=== PATIENT | male | born 1950 | race Caucasian/White ===

== ENCOUNTER → 2018-05-19 | Outpatient (CLI) | payer MEDICARE ==
--- NOTE | 2018-05-19 09:04 | Diagnostic Imaging Report ---
Indication: Persistent cough PA and lateral chest Heart size and pulmonary vascular normal. Lungs are clear. There are no effusions or pneumothoraces. Impression: Negative chest Dictated by: Dictated on workstation # [id number]
== END ==
LOC: RAD 08:46
PROVIDERS: ATTEND Family Medicine
DX: R05 Cough (principal)
CPT/HCPCS: 71046

== ENCOUNTER → 2021-08-17 | Outpatient (CLI) | payer MEDICARE ==
--- NOTE | 2021-08-17 11:15 | Diagnostic Imaging Report ---
PROCEDURE: CT abdomen and pelvis without contrast. TECHNIQUE: Multiple contiguous axial images were obtained through the abdomen and pelvis without the use of intravenous contrast. Auto Exposure Controls were utilized during the CT exam to meet ALARA standards for radiation dose reduction. INDICATION: Prostate carcinoma. No prior studies are available for comparison. FINDINGS: The lung bases are clear. There is some generalized low attenuation throughout the liver consistent with hepatic steatosis. No discrete liver mass is detected. There are multiple stones within the gallbladder. No biliary ductal dilatation is seen. Pancreas and spleen are unremarkable. No adrenal mass is detected. No definite renal calculi or hydronephrosis is identified. Aorta is nonaneurysmal. No central retroperitoneal or mesenteric lymphadenopathy is detected. The small and large bowel loops are normal caliber. There is no obstruction. There are occasional diverticula within the sigmoid colon but no evidence of acute diverticulitis. There is no free fluid or fluid collection. Bladder is unremarkable. Prostate is enlarged. No definite pathologically enlarged pelvic lymph nodes are identified. Bony structures are without evidence of osteolytic or blastic lesions. There is grade 1 spondylolisthesis of L5 on S1 with bilateral pars defects. There is generalized lumbar spondylosis. IMPRESSION: 1. Hepatic steatosis and cholelithiasis. 2. Prostatomegaly. 3. Uncomplicated diverticulosis. 4. No evidence of abdominal or pelvic lymphadenopathy or metastatic disease. Dictated by: Dictated on workstation # [id number]
--- NOTE | 2021-08-17 15:14 | Diagnostic Imaging Report ---
Indication: Prostate carcinoma. Patient was administered 26.9 mCi technetium 99m MDP intravenously and whole-body imaging was performed after a three-hour delay. No prior studies are available for comparison. There is normal uptake of activity by the axial and appendicular skeleton. There is uptake by the kidneys with excretion to urinary bladder. No suspicious foci or trace accumulation is seen to suggest osseous metastatic disease. IMPRESSION: No scintigraphic evidence of osseous metastatic disease. Dictated by: Dictated on workstation # [id number]
== END ==
LOC: CARD 10:32
PROVIDERS: ATTEND Urology
DX: K76.0 Fatty (change of) liver, not elsewhere classified (principal); K80.20 Calculus of gallbladder without cholecystitis without obstruction; K57.30 Diverticulosis of large intestine without perforation or abscess without bleeding; N40.0 Benign prostatic hyperplasia without lower urinary tract symptoms; Z85.46 Personal history of malignant neoplasm of prostate
CPT/HCPCS: 74176; 78306; A9503

== ENCOUNTER 2021-09-04 09:41 | Outpatient (RCR) | payer MEDICARE, OTHER | END 2021-09-24 | disposition home or self-care (01) | LOC: ONC 09:41 | PROVIDERS: ATTEND Radiology Radiation Oncology | DX: C61 Malignant neoplasm of prostate (principal); E11.9 Type 2 diabetes mellitus without complications; I10 Essential (primary) hypertension | CPT/HCPCS: 76873; G0463; 99204 ==

== ENCOUNTER → 2021-10-12 | Outpatient (CLI) | payer MEDICARE, OTHER | END | disposition home or self-care (01) | LOC: PREOP 05:38 | PROVIDERS: ATTEND Urology | DX: Z01.818 Encounter for other preprocedural examination (principal) ==

== ENCOUNTER 2021-12-06 05:33 | Outpatient (CLI) | payer MEDICARE, OTHER ==
[~2021-12-06] VITALS: Ht 172 cm; Wt 80.0 kg
[2021-12-07] MEDS ORDERED: AZIL40TA PO (09:32)
[2021-12-07] MEDS ORDERED: METF-397 PO (09:32)
== END 2021-12-07 09:40 | disposition home or self-care (01) ==
LOC: PREOP 05:33
PROVIDERS: ATTEND Urology
DX: Z01.818 Encounter for other preprocedural examination (principal)

== ENCOUNTER 2021-12-13 05:53 | Day surgery (SDC) | payer MEDICARE ==
[2021-12-13] VITALS (12 sets, daily range): BP systolic 90–114; BP diastolic 55–81
[~2021-12-13] VITALS: Ht 172 cm; Wt 80.0 kg
[~2021-12-13 05:53] MED LIST: AZIL40TA PO; METF-397 PO
[2021-12-13] MEDS: LACTATED RINGERS 1,000 ML IV PRN ×2 (06:43→08:00)
--- NOTE | 2021-12-13 07:04 | Progress Note-Pre Operative ---
Pre-Operative Progress Note Date of Available H&P: Dec 13, 2021 Date H&P Reviewed: Dec 13, 2021 Time H&P Reviewed: 07:04 Changes from last HP NONE Pre-Operative Diagnosis: CA PROSTATE EVELYN AMBROCIO MD Dec 13, 2021 07:04
--- NOTE | 2021-12-13 07:05 | Progress Note-Post Operative ---
Post-Operative Progess Note Surgeon (s)/Phonograph Cartridge Assembler (s) Surgeon ROSHNI DONAHUE MD, EVELYN AMBROCIO MD Phonograph Cartridge Assembler: NONE Pre-Operative Diagnosis CA PROSTATE Post-Operative Diagnosis SAME Procedure & Operative Findings Date of Procedure 12/13/21 Procedure Performed/Findings BRACHYTHERAPY, CYSTOGRAM, AND SPACE OAR Anesthesia Type GENERAL Estimated Blood Loss Estimated blood loss (mL): NEGLIGIBLE Specimens/Packing Specimens Removed NONE Packing: NONE EVELYN AMBROCIO MD Dec 13, 2021 07:05
--- NOTE | 2021-12-13 07:08 | Discharge Inst-Urology ---
Discharge Inst-Urology Reconcile Patient Problems Problems Reviewed?: Yes Final Diagnosis CA PROSTATE Patient Instructions/Follow Up Plan/Assessment/Instructions Discharge with christy and leg bag day time and large bag night time with instructions Come to office saturday 9am to YURI[facility] Christy Please make appointment to been seen in office by me in 2 weeks. Keep bowels soft and moving Increase oral fluids for 48 hours and then as needed. Diet and Activity as tolerated. If questions or concerns contact your physician Or seek help at emergency department. EVELYN AMBROCIO MD Dec 13, 2021 07:08
[2021-12-13] MEDS ORDERED: fentaNYL INJ 100 MCG/2 ML AMP ONE (07:21)
[2021-12-13] MEDS ORDERED: MIDAZOLAM 2 MG/2 ML (VERSED) VIAL ONE (07:21)
[2021-12-13] MEDS ORDERED: PHENYLEPHRINE 100 MCG/ML 10 ML (ANESTHESIA) SYR ONE (08:02)
[2021-12-13] MEDS ORDERED: ONDANSETRON 4 MG/2 ML (SDV) Z0FRAN ONE (08:03)
[2021-12-13] MEDS ORDERED: LIDOCAINE PF 2% 5 ML (XYLOCAINE) VIAL ONE (08:03)
[2021-12-13] MEDS ORDERED: proPOfol 200 MG/20 ML (DIPRIVAN) VIAL IV ONE (08:03)
[2021-12-13] MEDS ORDERED: BACITRACIN OINTMENT 28 GM TUBE ONE (08:34)
[2021-12-13] MEDS ORDERED: SEVOFLURANE (ULTANE) 15 ML INHAL SOLN ONE (08:40)
--- NOTE | 2021-12-13 08:53 | Anesthesia-General Post-Op ---
General Patient Condition Mental Status/LOC: Same as Preop Cardiovascular: Satisfactory Nausea/Vomiting: Absent Respiratory: Satisfactory Pain: Controlled Complications: Absent Post Op Complications Complications None Follow Up Care/Instructions Patient Instructions None needed. Anesthesia/Patient Condition Patient Condition Patient is doing well, no complaints, stable vital signs, no apparent adverse anesthesia problems. No complications reported per nursing. GELA NINA CRNA Dec 13, 2021 08:53
[2021-12-13] MEDS ORDERED: ONDANSETRON 4 MG/2 ML (SDV) Z0FRAN IVP PRN (09:00)
[2021-12-13] MEDS ORDERED: fentaNYL INJ 100 MCG/2 ML AMP IVP ONE (09:00)
--- NOTE | 2021-12-13 09:29 | Diagnostic Imaging Report ---
Indication: Fluoroscopy for brachytherapy. Fluoroscopy was provided during brachytherapy. 11 seconds of fluoroscopic time was utilized. A single image was obtained demonstrating radiation seed implants within the prostate gland. IMPRESSION: Fluoroscopy during brachytherapy. Dictated by: Dictated on workstation # [id number]
== END 2021-12-13 10:44 | disposition home or self-care (01) ==
LOC: SDC 05:53
PROVIDERS: ATTEND Urology
DX: C61 Malignant neoplasm of prostate (principal)
CPT/HCPCS: 55876; 76000; 76965; 77290; 77318; 77332; 77370; 77470; 77778; 82947; 87081; 93005; C1715 ×2; C1889; C2643

== ENCOUNTER 2022-01-10 08:47 | Outpatient (RCR) | payer MEDICARE, OTHER | END 2022-01-24 | disposition home or self-care (01) | LOC: ONC 08:47 | PROVIDERS: ATTEND Radiology Radiation Oncology | DX: C61 Malignant neoplasm of prostate (principal); E11.9 Type 2 diabetes mellitus without complications; I10 Essential (primary) hypertension; Z51.0 Encounter for antineoplastic radiation therapy | CPT/HCPCS: 77290; 77295 ==

== ENCOUNTER 2022-06-14 08:55 | Outpatient (RCR) | payer MEDICARE | END 2022-06-24 | disposition home or self-care (01) | LOC: ONC 08:55 | PROVIDERS: ATTEND Internal Medicine Hematology & Oncology | DX: C61 Malignant neoplasm of prostate (principal); I10 Essential (primary) hypertension; E11.9 Type 2 diabetes mellitus without complications | CPT/HCPCS: 82310; 82330; 83970; 99213 ==